=== PATIENT | male | born 1950 | race Caucasian/White ===

== ENCOUNTER 2017-12-21 07:34 | Emergency (ER) | payer OTHER ==
[~2017-12-21] VITALS: Ht 177.8 cm; Wt 93.0 kg
[~2017-12-21 07:34] MED LIST: HYDR-3583 PO
[2017-12-21] MEDS ORDERED: KETOROLAC 30 MG/ML VIAL ONE (08:01)
[2017-12-21] MEDS ORDERED: ONDANSETRON 4 MG/2 ML (SDV) Z0FRAN ONE (08:01)
[2017-12-21] MEDS ORDERED: NS IV 1000 ML 1,000 ML IV ONE (08:12)
[2017-12-21 08:18] LABS: BASOPHILS # (AUTO) 0.1 10^3/uL (0.0-0.1); BASOPHILS % (AUTO) 1 % (0-10); EOSINOPHILS # (AUTO) 0.2 10^3/uL (0.0-0.3); EOSINOPHILS % (AUTO) 3 % (0-10); HEMATOCRIT 42 % (40-54); HEMOGLOBIN 14.1 G/DL (13.3-17.7); LYMPHOCYTES # (AUTO) 1.2 X 10^3 (1.0-4.0); LYMPHOCYTES % (AUTO) 20 % (12-44); MEAN CORPUSCULAR HEMOGLOBIN 29 PG (25-34); MEAN CORPUSCULAR HGB CONC 34 G/DL (32-36); MEAN CORPUSCULAR VOLUME 88 FL (80-99); MEAN PLATELET VOLUME 9.8 FL (7.4-10.4); MONOCYTES # (AUTO) 0.5 X 10^3 (0.0-1.0); MONOCYTES % (AUTO) 8 % (0-12); NEUTROPHILS # (AUTO) 3.9 X 10^3 (1.8-7.8); NEUTROPHILS % (AUTO) 67 % (42-75); PLATELET COUNT 214 10^3/uL (130-400); RED CELL DISTRIBUTION WIDTH 13.5 % (10.0-14.5); WHITE BLOOD COUNT 5.8 10^3/uL (4.3-11.0)
[2017-12-21 08:24] LABS: BILIRUBIN,URINE NEGATIVE (NEGATIVE); CLARITY,URINE CLEAR; COLOR,URINE YELLOW; GLUCOSE, URINE (UA) NEGATIVE (NEGATIVE); KETONES,URINE NEGATIVE (NEGATIVE); LEUKOCYTE ESTERASE ,URINE NEGATIVE (NEGATIVE); NITRITE,URINE NEGATIVE (NEGATIVE); PH,URINE 5 (5-9); PROTEIN,URINE NEGATIVE (NEGATIVE); UROBILINOGEN,URINE NORMAL (NORMAL)
[2017-12-21 08:30] LABS: ALANINE AMINOTRANSFERASE 17 U/L (0-55); ALBUMIN 4.2 GM/DL (3.2-4.5); ALKALINE PHOSPHATASE 62 U/L (40-136); BILIRUBIN,TOTAL 0.6 MG/DL (0.1-1.0); BUN/CREATININE RATIO 19; CALCIUM 9.7 MG/DL (8.5-10.1); CARBON DIOXIDE 25 MMOL/L (21-32); CHLORIDE 105 MMOL/L (98-107); CREATININE SERUM 1.12 MG/DL (0.60-1.30); GFR ESTIMATED > 60; GLUCOSE 116 MG/DL (70-105); SODIUM 139 MMOL/L (135-145); TOTAL PROTEIN 6.9 GM/DL (6.4-8.2)
[2017-12-21 08:32] LABS: BACTERIA,URINE NEGATIVE /HPF; RBC,URINE RARE /HPF
--- NOTE | 2017-12-21 09:26 | Diagnostic Imaging Report ---
PROCEDURE: CT urinary tract, rule out kidney stone. TECHNIQUE: Multiple contiguous axial images were obtained through the abdomen and pelvis without the use of intravenous contrast. INDICATION: Right flank pain and history of kidney stones. COMPARISON: Made with prior CT from 04/23/2012. FINDINGS: The lung bases are clear. Liver and gallbladder are unremarkable. The pancreas and spleen are unremarkable. No adrenal mass is identified. There are numerous nonobstructing calculi within both kidneys. The right kidney also demonstrates moderate hydroureteronephrosis. The dilated right ureter is traced to the bladder where there is a 3 mm calculus located at the UVJ. There is mild perinephric and periureteral inflammatory stranding on the right side. Low-density mass anterior aspect of the right kidney previously seen has increased measuring 2.77 cm compared with 2.2 cm. The aorta is non-aneurysmal. The small and large bowel loops are normal caliber. There is no ascites. IMPRESSION: 1. Bilateral nonobstructing nephrolithiasis. In addition there is a 3 mm calculus at the right UVJ producing moderate hydroureteronephrosis with perinephric and periureteral inflammatory stranding. 2. Increase in size of low density mass in the right kidney suggestive of enlarging cyst. This has increased approximately 5 mm since the exam from 2011. Dictated by: Dictated on workstation # [id number]
--- NOTE | 2017-12-21 09:31 | ED Abdominal Pain ---
General Chief Complaint: Abdominal/GI Problems Stated Complaint: RT ABD PAIN, RT BACK PAIN Nursing Triage Note: PT CO OF ABD PAIN, STATES STARTED AT APPROX 0630 THIS AM, PT IS UNABLE TO SIT STILL D/T PAIN, PT STATES PAIN IS IN R SIDE AND GOES THRU TO BACK, STATES HAS HX OF KIDNEY STONES Sepsis Screen: No Definite Risk Source of Information: Patient Exam Limitations: No Limitations History of Present Illness Date Seen by Provider: Dec 21, 2017 Time Seen by Provider: 07:54 Initial Comments This 67 gentleman presents to the emergency room with complaints of pain in the right lower back radiating around to the right lower abdomen that started while he urinated this morning. He has associated nausea. He denies any hematuria or other urinary changes. He does have a history of renal stones and lithotripsy. He has been afebrile. Allergies and Home Medications Allergies Coded Allergies: No Known Drug Allergies (Unverified , 12/01/10) Home Medications Hydrocodone/Acetaminophen 1 Each Tablet, 1-2 EACH PO Q4H PRN for PAIN-MODERATE TO SEVERE Prescribed by: YARELIS KRUEGER on 12/21/17 1000 Ondansetron 4 Mg Tab.rapdis, 4 MG SL Q4H PRN for NAUSEA/VOMITING-1ST LINE Prescribed by: YARELIS KRUEGER on 12/21/17 1000 Patient Home Medication List Home Medication List Reviewed: Yes Review of Systems Constitutional: no symptoms reported EENTM: No Symptoms Reported Respiratory: No Symptoms Reported Cardiovascular: No Symptoms Reported Gastrointestinal: See HPI Genitourinary: See HPI Musculoskeletal: no symptoms reported Skin: no symptoms reported Psychiatric/Neurological: No Symptoms Reported Endocrine: No Symptoms Reported Hematologic/Lymphatic: No Symptoms Reported Past Rfsjfub-Vzjhmx-Xqvkcg Hx Patient Social History Alcohol Use: Denies Use Recreational Drug Use: No Recent Foreign Travel: No Contact w/Someone Who Travel: No Recent Infectious Disease Expo: No Recent Hopitalizations: No Physical Abuse: No Sexual Abuse: No Past Medical History Surgeries: Yes Abdominal (hernia repair 2), Renal (lithotripsy) Respiratory: No Cardiac: No Neurological: No Reproductive Disorders: No (RIGHT HYDROCELE) Sexually Transmitted Disease: No Genitourinary: Yes Kidney Stones Gastrointestinal: No Musculoskeletal: Yes (KNEE AND JOINT PROBLEMS) Chronic Back Pain Endocrine: No HEENT: No Cancer: No Did You Recieve Any Treatments: No Psychosocial: No Nursing Suicide Risk Score: 0 Blood Disorders: No Physical Exam Vital Signs Vital Signs - First Documented 12/21/17 07:40 Temp 97.6 Pulse 74 Resp 18 B/P (MAP) 163/91 (115) Pulse Ox 98 Capillary Refill : Less Than 3 Seconds General Appearance: WD/WN, no apparent distress HEENT: normal ENT inspection, pharynx normal Neck: normal inspection Respiratory: lungs clear, normal breath sounds, no respiratory distress, no accessory muscle use Cardiovascular: regular rate, rhythm, no edema, no murmur Gastrointestinal: normal bowel sounds, non tender, soft Extremities: normal inspection Back: normal inspection, no CVA tenderness Neurologic/Psychiatric: heel seat filler II-XII nml as tested, no motor/sensory deficits, alert, normal mood/affect, oriented x 3 Skin: normal color, warm/dry Progress/Results/Core Measures Lab Results Laboratory Tests Test 12/21/17 07:59 12/21/17 08:17 Range/Units White Blood Count 5.8 4.3-11.0 10^3/uL Red Blood Count 4.80 4.35-5.85 10^6/uL Hemoglobin 14.1 13.3-17.7 G/DL Hematocrit 42 40-54 % Mean Corpuscular Volume 88 80-99 FL Mean Corpuscular Hemoglobin 29 25-34 PG Mean Corpuscular Hemoglobin Concent 34 32-36 G/DL Red Cell Distribution Width 13.5 10.0-14.5 % Platelet Count 214 130-400 10^3/uL Mean Platelet Volume 9.8 7.4-10.4 FL Neutrophils (%) (Auto) 67 42-75 % Lymphocytes (%) (Auto) 20 12-44 % Monocytes (%) (Auto) 8 0-12 % Eosinophils (%) (Auto) 3 0-10 % Basophils (%) (Auto) 1 0-10 % Neutrophils # (Auto) 3.9 1.8-7.8 X 10^3 Lymphocytes # (Auto) 1.2 1.0-4.0 X 10^3 Monocytes # (Auto) 0.5 0.0-1.0 X 10^3 Eosinophils # (Auto) 0.2 0.0-0.3 10^3/uL Basophils # (Auto) 0.1 0.0-0.1 10^3/uL Sodium Level 139 135-145 MMOL/L Potassium Level 4.0 3.6-5.0 MMOL/L Chloride Level 105 98-107 MMOL/L Carbon Dioxide Level 25 21-32 MMOL/L Anion Gap 9 5-14 MMOL/L Blood Urea Nitrogen 21 H 7-18 MG/DL Creatinine 1.12 0.60-1.30 MG/DL Estimat Glomerular Filtration Rate > 60 BUN/Creatinine Ratio 19 Glucose Level 116 H 70-105 MG/DL Calcium Level 9.7 8.5-10.1 MG/DL Total Bilirubin 0.6 0.1-1.0 MG/DL Aspartate Amino Transf (AST/SGOT) 21 5-34 U/L Alanine Aminotransferase (ALT/SGPT) 17 0-55 U/L Alkaline Phosphatase 62 40-136 U/L Total Protein 6.9 6.4-8.2 GM/DL Albumin 4.2 3.2-4.5 GM/DL Urine Color YELLOW Urine Clarity CLEAR Urine pH 5 5-9 Urine Specific [place] 1.020 1.016-1.022 Urine Protein NEGATIVE NEGATIVE Urine Glucose (UA) NEGATIVE NEGATIVE Urine Ketones NEGATIVE NEGATIVE Urine Nitrite NEGATIVE NEGATIVE Urine Bilirubin NEGATIVE NEGATIVE Urine Urobilinogen NORMAL NORMAL MG/DL Urine Leukocyte Esterase NEGATIVE NEGATIVE Urine RBC (Auto) NEGATIVE NEGATIVE Urine RBC RARE /HPF Urine WBC NONE /HPF Urine Squamous Epithelial Cells 5-10 /HPF Urine Crystals NONE /LPF Urine Bacteria NEGATIVE /HPF Urine Casts NONE /LPF Urine Mucus NEGATIVE /LPF Urine Culture Indicated NO My Orders Orders - YARELIS LUIS MD Ua Culture If Indicated (12/21/17 07:54) Ondansetron Injection (Zofran Injectio (12/21/17 08:01) Ketorolac Injection (Toradol Injection) (12/21/17 08:01) Cbc With Automated Diff (12/21/17 08:12) Comprehensive Metabolic Panel (12/21/17 08:12) Saline Lock/Iv-Start (12/21/17 08:12) Ns Iv 1000 Ml (Sodium Chloride 0.9%) (12/21/17 08:12) Ct Abd/Pelvis Wo(Kidney Stone) (12/21/17 08:45) Abdomen/Kub 1view (12/21/17 09:22) Medications Given in ED Current Medications Medications Dose Ordered Sig/Roel Route Start Time Stop Time Status Last Admin Dose Admin Ketorolac Tromethamine 30 mg STK-MED ONCE .ROUTE 12/21/17 08:01 12/21/17 08:06 DC 12/21/17 08:09 30 MG Ondansetron HCl 4 mg STK-MED ONCE .ROUTE 12/21/17 08:01 12/21/17 08:05 DC 12/21/17 08:08 4 MG Sodium Chloride 1,000 ml @ 0 mls/hr Q0M ONCE IV 12/21/17 08:12 12/21/17 08:13 DC 12/21/17 08:34 1,000 MLS/HR Vital Signs/I&O 12/21/17 12/21/17 07:40 10:12 Temp 97.6 Pulse 74 72 Resp 18 18 B/P (MAP) 163/91 (115) 146/89 Pulse Ox 98 96 Blood Pressure Mean: 115 Progress Note : Progress Note Patient received Toradol and Zofran for initial symptom management as well as a liter of IV fluids. No blood was found in his urine. Risks and benefits of further evaluation with CT scan were discussed. Patient elects to proceed with CT scan. CT demonstrates numerous kidney stones and a right ureteral stone at the right UVJ. Diagonstic Imaging: CT Plain Films/CT/US/NM/MRI: abdomen, pelvis Comments CT abdomen and pelvis viewed by me and report reviewed. See report below: NAME: ESTELITA GOLDSTEIN [facility] REC#: [id number] PT STATUS: REG ER : 1950 PHYSICIAN: YARELIS LUIS MD ADMIT DATE: 12/21/17/ER Draft Date of Exam:12/21/17 CT ABD/PELVIS WO(KIDNEY STONE) PROCEDURE: CT urinary tract, rule out kidney stone. TECHNIQUE: Multiple contiguous axial images were obtained through the abdomen and pelvis without the use of intravenous contrast. INDICATION: Right flank pain and history of kidney stones. COMPARISON: Made with prior CT from 04/23/2012. FINDINGS: The lung bases are clear. Liver and gallbladder are unremarkable. The pancreas and spleen are unremarkable. No adrenal mass is identified. There are numerous nonobstructing calculi within both kidneys. The right kidney also demonstrates moderate hydroureteronephrosis. The dilated right ureter is traced to the bladder where there is a 3 mm calculus located at the UVJ. There is mild perinephric and periureteral inflammatory stranding on the right side. Low-density mass anterior aspect of the right kidney previously seen has increased measuring 2.77 cm compared with 2.2 cm. The aorta is non-aneurysmal. The small and large bowel loops are normal caliber. There is no ascites. IMPRESSION: 1. Bilateral nonobstructing nephrolithiasis. In addition there is a 3 mm calculus at the right UVJ producing moderate hydroureteronephrosis with perinephric and periureteral inflammatory stranding. 2. Increase in size of low density mass in the right kidney suggestive of enlarging cyst. This has increased approximately 5 mm since the exam from 2011. Dictated on workstation # [id number] Dict: 12/21/17916 Trans: 12/21/17925 CVB [id number] Interpreted by: THUAN WHITEHEAD MD Departure Impression Primary Impression: Right ureteral stone Additional Impressions: Hydronephrosis Qualified Codes: N13.2 - Hydronephrosis with renal and ureteral calculous obstruction Bilateral nephrolithiasis Renal cyst, right Disposition: 01 HOME, SELF-CARE Condition: Improved Departure-Patient Inst. Decision time for Depature: 09:30 Referrals: NO,LOCAL PHYSICIAN (PCP) Primary Care Physician RODDY JOE MD Patient Instructions: Kidney Stones in Adults Add. Discharge Instructions: Drink plenty of clear liquids. Strain your urine and bring any stones collected with you to your appointment. Use Zofran as prescribed for nausea and vomiting. Usual pain medication as directed. Follow-up with a urologist as soon as possible. Return to emergency room if you have worsening symptoms. All discharge instructions reviewed with patient and/or family. Voiced understanding. Scripts Hydrocodone/Acetaminophen (Hydrocodone-Acetamin 5-325 mg) 1 Each Tablet 1-2 EACH PO Q4H PRN for PAIN-MODERATE TO SEVERE, #20 TAB Prov: YARELIS LUIS MD 12/21/17 Ondansetron (Zofran Odt) 4 Mg Tab.rapdis 4 MG SL Q4H PRN for NAUSEA/VOMITING-1ST LINE, #10 TAB 2 Refills Prov: YARELIS LUIS MD 4/27/18 Copy Copies To 1: RODDY JOE MD, JOSHUA T MD Dec 21, 2017 09:31
[2017-12-21] MEDS ORDERED: HYDR-3812 PO (10:00)
[2017-12-21] MEDS ORDERED: ONDA4TAB8 SL (10:00)
--- NOTE | 2017-12-21 10:05 | Diagnostic Imaging Report ---
EXAMINATION: Abdomen 1032 hours. INDICATION: Abdominal pain. 2 supine views were obtained. FINDINGS: As noted on the CT abdomen/pelvis exam performed prior to the study, there are nonobstructive calculi within both kidneys. The small 2-3 MM obstructive calculus within the ureterovesical junction of the right seen on the CT exam is difficult to appreciate on this study. There is no mass or organomegaly appreciated. The bowel gas pattern is nonspecific. There is levoscoliosis of the lumbar spine and severe degenerative disc and bony disease at the L2-L3 and L3-L4 levels. There is no acute bony abnormality noted. The surgical coils are evident overlying the right low pelvis consistent with prior hernia repair. IMPRESSION: 1. There are nonobstructive calculi within both kidneys. The obstructive calculus at the ureterovesical junction of the right seen on CT exam is difficult to appreciate on this study, however. 2. There is no acute abnormality noted otherwise. Dictated by: Dictated on workstation # [id number]
[2017-12-21 10:12] VITALS: BP 146/89
== END 2017-12-21 10:12 | disposition home or self-care (01) ==
LOC: EDUNIT# 07:34 → ER 07:36
DX: N13.2 Hydronephrosis with renal and ureteral calculous obstruction (principal); N28.1 Cyst of kidney, acquired; Z87.19 Personal history of other diseases of the digestive system
CPT/HCPCS: 36415; 74018; 74176; 80053; 81000; 85025; 96374; 96375

== ENCOUNTER → 2018-03-08 | Outpatient (CLI) | payer OTHER ==
[~2018-03-08] MED LIST changes: +HYDR-3812 PO; +ONDA4TAB8 SL
--- NOTE | 2018-03-08 16:01 | Diagnostic Imaging Report ---
Indication: Scoliosis and right leg pain. Time of exam: 4:06 PM Left convexity upper lumbar scoliotic curvature appears similar to prior exam. No significant scoliotic curvature is seen. Lumbar scoliotic curvature is approximately 31 degrees. Thoracic vertebra not well visualized on the submitted images. Lungs appear to be clear. Paraspinous line is intact. Impression: Left convexity lumbar scoliotic curvature. Overall image quality is somewhat limited. Dictated by: Dictated on workstation # [id number]
--- NOTE | 2018-03-08 16:31 | Diagnostic Imaging Report ---
EXAM: LUMBAR SPINE - 2-3 VIEWS INDICATION: SCIATIAC RT LEG/ SCOLIOSIS COMPARISON: CT abdomen and pelvis without contrast 12/21/2017. FINDINGS: Moderate to advanced left apex lumbar curvature centered at L2-L3. There are moderate to advanced degenerative endplate changes throughout the lumbar spine. Grade 2 anterolisthesis of L5 on S1 is stable. Vertebral body heights are preserved. No acute fractures. Advanced facet arthropathy throughout the lumbar spine. Nonspecific bowel gas pattern in the visualized abdomen. Moderate degenerative changes in the sacroiliac joints. Surgical clips overlying the pelvis. IMPRESSION: Advanced spondylotic and scoliotic changes in the lumbar spine including grade 2 anterolisthesis of L5 on S1. These findings are stable compared to the 12/21/2017 CT. No acute radiographic findings. Dictated by: Dictated on workstation # [id number]
== END ==
LOC: RAD 14:59
PROVIDERS: ATTEND Chiropractor Sports Physician
DX: M41.86 Other forms of scoliosis, lumbar region (principal); M43.17 Spondylolisthesis, lumbosacral region
CPT/HCPCS: 72081; 72100

== ENCOUNTER → 2021-09-13 | Outpatient (CLI) | payer OTHER ==
[~2021-09-13] MED LIST changes: +ACHD5005 PO; -HYDR-3812 PO
--- NOTE | 2021-09-13 11:00 | Diagnostic Imaging Report ---
Lumbar spine at 946h. INDICATION: Postsurgical. AP and lateral views were obtained. The prior lumbar spine exam of 03/08/18 noted advanced spondylitic and scoliotic changes involving the lumbar spine including a grade 2 anterolisthesis of L5 with respect S1. In the interval since the prior exam the patient has undergone surgical fusion. There are now bilateral pedicle screws in place at L4-L5 and S1. There is also an interbody device at the L4-L5 level. The orthopedic hardware seems to be in good position. The grade 2 spondylolisthesis of L5 with respect S1 seen previously is again evident and no different. The remainder of the lumbar spine is unchanged. There is no acute abnormality identified. There is no sign of a paraspinal mass. IMPRESSION: 1. There are postsurgical changes consistent with interval fusion of L4-L5 and S1. The orthopedic hardware seems to be in good position. 2. There is no acute abnormality identified. 3. There is still a grade 2 spondylolisthesis of L5 with respect to S1. Dictated by: Dictated on workstation # [id number]
== END ==
LOC: RAD 09:11
PROVIDERS: ATTEND Neurological Surgery
DX: Z48.89 Encounter for other specified surgical aftercare (principal); M43.17 Spondylolisthesis, lumbosacral region; Z98.1 Arthrodesis status
CPT/HCPCS: 72100

== ENCOUNTER → 2021-09-27 | Outpatient (CLI) | payer OTHER ==
--- NOTE | 2021-09-27 09:32 | Diagnostic Imaging Report ---
INDICATION: Hip pain COMPARISON: None. FINDINGS: 2 views the right hip demonstrate mild degenerative joint disease. There is no fracture or dislocation. No osseous lesion. IMPRESSION: Degenerative joint disease. Dictated by: Dictated on workstation # [id number]
== END ==
LOC: RAD 08:53
PROVIDERS: ATTEND Physical Medicine & Rehabilitation
DX: M16.11 Unilateral primary osteoarthritis, right hip (principal)
CPT/HCPCS: 73502

== ENCOUNTER → 2021-12-27 | Outpatient (CLI) | payer OTHER ==
[2021-12-27 08:44] LABS: BASOPHILS # (AUTO) 0.1 10^3/uL (0.0-0.1); BASOPHILS % (AUTO) 1 % (0-10); EOSINOPHILS # (AUTO) 0.1 10^3/uL (0.0-0.3); EOSINOPHILS % (AUTO) 2 % (0-10); HEMATOCRIT 43 % (40-54); LYMPHOCYTES # (AUTO) 1.6 10^3/uL (1.0-4.0); LYMPHOCYTES % (AUTO) 31 % (12-44); MEAN CORPUSCULAR HEMOGLOBIN 30 pg (25-34); MEAN CORPUSCULAR HGB CONC 33 g/dL (32-36); MEAN CORPUSCULAR VOLUME 90 fL (80-99); MEAN PLATELET VOLUME 9.5 fL (9.0-12.2); MONOCYTES # (AUTO) 0.5 10^3/uL (0.0-1.0); MONOCYTES % (AUTO) 10 % (0-12); NEUTROPHILS # (AUTO) 2.8 10^3/uL (1.8-7.8); NEUTROPHILS % (AUTO) 55 % (42-75); PLATELET COUNT 215 10^3/uL (130-400)
[2021-12-27 09:20] LABS: BILIRUBIN,TOTAL 0.4 MG/DL (0.1-1.0); CALCIUM 9.3 MG/DL (8.5-10.1); CREATININE SERUM 1.23 MG/DL (0.60-1.30); POTASSIUM 4.3 MMOL/L (3.6-5.0)
== END ==
LOC: LAB 08:21
DX: N40.0 Benign prostatic hyperplasia without lower urinary tract symptoms (principal); R53.83 Other fatigue; E78.2 Mixed hyperlipidemia
CPT/HCPCS: 36415; 80053; 80061; 84153; 84443; 85025

== ENCOUNTER → 2023-03-28 | Outpatient (CLI) | payer OTHER ==
[2023-03-28 15:30] LABS: BASOPHILS % (AUTO) 1 % (0-10); EOSINOPHILS # (AUTO) 0.1 10^3/uL (0.0-0.3); EOSINOPHILS % (AUTO) 2 % (0-10); HEMATOCRIT 42 % (40-54); HEMOGLOBIN 13.6 g/dL (13.3-17.7); LYMPHOCYTES # (AUTO) 1.5 X 10^3 (1.0-4.0); LYMPHOCYTES % (AUTO) 32 % (12-44); MEAN CORPUSCULAR HEMOGLOBIN 30 pg (25-34); MEAN CORPUSCULAR HGB CONC 33 g/dL (32-36); MEAN CORPUSCULAR VOLUME 91 fL (80-99); MEAN PLATELET VOLUME 9.2 fL (9.0-12.2); MONOCYTES # (AUTO) 0.4 X 10^3 (0.0-1.0); MONOCYTES % (AUTO) 9 % (0-12); NEUTROPHILS # (AUTO) 2.5 X 10^3 (1.8-7.8); NEUTROPHILS % (AUTO) 56 % (42-75); PLATELET COUNT 214 10^3/uL (130-400); WHITE BLOOD COUNT 4.5 10^3/uL (4.3-11.0)
[2023-03-28 15:43] LABS: ALBUMIN 4.1 GM/DL (3.2-4.5); POTASSIUM 4.3 MMOL/L (3.6-5.0)
[2023-03-28 15:44] LABS: CALCIUM 9.4 MG/DL (8.5-10.1)
[2023-03-28 15:46] LABS: TOTAL PROTEIN 7.2 GM/DL (6.4-8.2)
[2023-03-28 15:47] LABS: BILIRUBIN,TOTAL 0.4 MG/DL (0.1-1.0)
[2023-03-28 15:49] LABS: CREATININE SERUM 1.15 MG/DL (0.60-1.30)
== END | disposition home or self-care (01) ==
LOC: LAB 15:09
PROVIDERS: ATTEND Family Medicine
DX: Z00.00 Encounter for general adult medical examination without abnormal findings (principal)
CPT/HCPCS: 36415; 80053; 80061; 85025

== ENCOUNTER 2023-06-01 13:25 | Emergency (ER) | payer OTHER ==
[2023-06-01 13:51] VITALS: BP 121/58
[2023-06-01 14:22] LABS: BASOPHILS % (AUTO) 0 % (0-10); EOSINOPHILS % (AUTO) 0 % (0-10); HEMATOCRIT 41 % (40-54); HEMOGLOBIN 13.2 g/dL (13.3-17.7); LYMPHOCYTES # (AUTO) 0.3 X 10^3 (1.0-4.0); LYMPHOCYTES % (AUTO) 2 % (12-44); MEAN CORPUSCULAR HEMOGLOBIN 30 pg (25-34); MEAN CORPUSCULAR HGB CONC 32 g/dL (32-36); MEAN CORPUSCULAR VOLUME 92 fL (80-99); MEAN PLATELET VOLUME 9.9 fL (9.0-12.2); MONOCYTES % (AUTO) 8 % (0-12); NEUTROPHILS # (AUTO) 11.7 X 10^3 (1.8-7.8); NEUTROPHILS % (AUTO) 89 % (42-75); PLATELET COUNT 182 10^3/uL (130-400); WHITE BLOOD COUNT 13.2 10^3/uL (4.3-11.0)
[2023-06-01 14:38] LABS: ALBUMIN 3.9 GM/DL (3.2-4.5); POTASSIUM 3.7 MMOL/L (3.6-5.0)
[2023-06-01 14:39] LABS: CALCIUM 9.5 MG/DL (8.5-10.1)
[2023-06-01 14:42] LABS: BILIRUBIN,TOTAL 1.2 MG/DL (0.1-1.0)
[2023-06-01 14:44] LABS: CREATININE SERUM 1.31 MG/DL (0.60-1.30)
--- NOTE | 2023-06-01 14:52 | ED Abdominal Pain ---
General Chief Complaint: Abdominal/GI Problems Stated Complaint: ABD PAIN Nursing Triage Note: PATIENT COMPLAINT OF ABDOMINAL PAIN WITH STANDING ONLY. STATES DIFF URINATING. Source of Information: Patient Exam Limitations: No Limitations History of Present Illness Date Seen by Provider: Jun 01, 2023 Time Seen by Provider: 14:24 Initial Comments 73-year-old male presents emergency room today for abdominal discomfort. He states it is in his suprapubic region, lower abdomen and was present when he woke up. It has been progressive through the day. It really only hurts when he is upright and does not hurt at all when he sits down. He does endorse some decreased frequency of bowel movements over the last couple of days but he is still having small bowel movements daily. He denies any nausea or vomiting. No fevers or chills. No dysuria or hematuria. He does have a history of kidney stones and believes it might be related to that. He has had no intra-abdominal surgeries. All other systems reviewed and negative except documented per HPI. Voice recognition software was used to help create this chart Allergies and Home Medications Allergies Coded Allergies: No Known Drug Allergies (Unverified , 12/01/10) Patient Home Medication List Home Medication List Reviewed: Yes Hydrocodone Bit/Acetaminophen (Lortab 5 Mg Tablet) 1 Each Tablet, 1-2 EACH PO Q4H PRN for PAIN-MODERATE TO SEVERE Prescribed by: YARELIS KRUEGER on 12/21/17 1000 Ondansetron (Zofran Odt) 4 Mg Tab.rapdis, 4 MG SL Q4H PRN for NAUSEA/VOMITING- 1ST LINE Prescribed by: YARELIS KRUEGER on 12/21/17 1000 Review of Systems Review of Systems Constitutional: see HPI Past Gxfnada-Sjkoyj-Gxeppx Hx Patient Social History Tobacco Use?: No Use of E-Cig and/or Vaping dev: No Alcohol Use?: No Past Medical History Surgeries: Yes Abdominal, Renal Respiratory: No Cardiac: No Neurological: No Reproductive Disorders: No (RIGHT HYDROCELE) Sexually Transmitted Disease: No Genitourinary: Yes Kidney Stones Gastrointestinal: No Musculoskeletal: Yes (KNEE AND JOINT PROBLEMS) Chronic Back Pain Endocrine: No HEENT: No Cancer: No Did You Recieve Any Treatments: No Psychosocial: No Blood Disorders: No Physical Exam Vital Signs Vital Signs - First Documented 06/01/23 13:51 Pulse 87 Resp 20 B/P (MAP) 121/58 (79) Pulse Ox 96 O2 Delivery Room Air Capillary Refill : Less Than 3 Seconds Height/Weight/BMI Height: 5'10.00" Weight: 205lbs. oz. 92.655505yq; BMI Method:Stated General Appearance: WD/WN, no apparent distress HEENT: normal ENT inspection, pharynx normal Respiratory: chest non-tender, lungs clear, normal breath sounds, no respiratory distress, no accessory muscle use Cardiovascular: regular rate, rhythm, no murmur Gastrointestinal: normal bowel sounds, soft, tenderness (Tenderness palpation bilateral suprapubic region and lower abdomen just inferior to the umbilicus. No rebound or guarding. No mass organomegaly. No skin changes.) Extremities: normal range of motion, normal capillary refill Skin: normal color, warm/dry Progress/Results/Core Measures Results/Orders Lab Results Laboratory Tests Test 06/01/23 14:14 06/01/23 15:09 Range/Units White Blood Count 13.2 H 4.3-11.0 10^3/uL Red Blood Count 4.43 4.30-5.52 10^6/uL Hemoglobin 13.2 L 13.3-17.7 g/dL Hematocrit 41 40-54 % Mean Corpuscular Volume 92 80-99 fL Mean Corpuscular Hemoglobin 30 25-34 pg Mean Corpuscular Hemoglobin Concent 32 32-36 g/dL Red Cell Distribution Width 13.6 10.0-14.5 % Platelet Count 182 130-400 10^3/uL Mean Platelet Volume 9.9 9.0-12.2 fL Immature Granulocyte % (Auto) 1 % Neutrophils (%) (Auto) 89 H 42-75 % Lymphocytes (%) (Auto) 2 L 12-44 % Monocytes (%) (Auto) 8 0-12 % Eosinophils (%) (Auto) 0 0-10 % Basophils (%) (Auto) 0 0-10 % Neutrophils # (Auto) 11.7 H 1.8-7.8 X 10^3 Lymphocytes # (Auto) 0.3 L 1.0-4.0 X 10^3 Monocytes # (Auto) 1.0 0.0-1.0 X 10^3 Eosinophils # (Auto) 0.0 0.0-0.3 10^3/uL Basophils # (Auto) 0.0 0.0-0.1 10^3/uL Immature Granulocyte # (Auto) 0.1 0.0-0.1 10^3/uL Neutrophils % (Manual) 92 % Lymphocytes % (Manual) 2 % Monocytes % (Manual) 2 % Band Neutrophils 4 % Platelet Estimate ADEQUATE Poikilocytosis SLIGHT Sodium Level 136 135-145 MMOL/L Potassium Level 3.7 3.6-5.0 MMOL/L Chloride Level 102 98-107 MMOL/L Carbon Dioxide Level 22 21-32 MMOL/L Anion Gap 12 5-14 MMOL/L Blood Urea Nitrogen 19 H 7-18 MG/DL Creatinine 1.31 H 0.60-1.30 MG/DL Estimat Glomerular Filtration Rate 58 BUN/Creatinine Ratio 15 Glucose Level 150 H 70-105 MG/DL Calcium Level 9.5 8.5-10.1 MG/DL Corrected Calcium 9.6 8.5-10.1 MG/DL Total Bilirubin 1.2 H 0.1-1.0 MG/DL Aspartate Amino Transf (AST/SGOT) 15 5-34 U/L Alanine Aminotransferase (ALT/SGPT) 11 0-55 U/L Alkaline Phosphatase 77 40-136 U/L Total Protein 7.0 6.4-8.2 GM/DL Albumin 3.9 3.2-4.5 GM/DL Urine Color ORANGE Urine Clarity CLOUDY Urine pH 5.5 5-9 Urine Specific [place] 1.020 1.016-1.022 Urine Protein 3+ H NEGATIVE Urine Glucose (UA) NEGATIVE NEGATIVE Urine Ketones NEGATIVE NEGATIVE Urine Nitrite POSITIVE H NEGATIVE Urine Bilirubin NEGATIVE NEGATIVE Urine Urobilinogen 0.2 < = 1.0 MG/DL Urine Leukocyte Esterase 1+ H NEGATIVE Urine RBC (Auto) 3+ H NEGATIVE Urine RBC 10-25 H /HPF Urine WBC 25-50 H /HPF Urine Squamous Epithelial Cells 2-5 /HPF Urine Crystals NONE /LPF Urine Bacteria LARGE H /HPF Urine Casts NONE /LPF Urine Mucus NEGATIVE /LPF Urine Culture Indicated YES My Orders Orders - DEEPA STUBBS DO Comprehensive Metabolic Panel (06/01/23 13:57) Ua Culture If Indicated (06/01/23 13:57) Ct Abdomen/Pelvis W (06/01/23 13:57) Cbc And Automated Diff (06/01/23 13:57) Ed Iv/Invasive Line Start (06/01/23 13:57) Manual Differential (06/01/23 14:14) Iohexol Injection (Omnipaque 350 Mg/Ml 1 (06/01/23 15:00) Received Contrast (Hold Metformin- Contr (06/01/23 15:00) Ns (Ivpb) 100 Ml (Sodium Chloride 0.9% 1 (06/01/23 15:00) Urine Culture (06/01/23 15:09) Ciprofloxacin Tablet (Ciprofloxacin Tabl (06/01/23 15:39) Medications Given in ED Current Medications Medications Dose Ordered Sig/Roel Route Start Time Stop Time Status Last Admin Dose Admin Iohexol 100 ml ONCE ONCE IV 06/01/23 15:00 06/01/23 15:01 DC 06/01/23 15:12 80 ML Sodium Chloride 100 ml ONCE ONCE IV 06/01/23 15:00 06/01/23 15:01 DC 06/01/23 15:12 80 ML Vital Signs/I&O 06/01/23 13:51 Pulse 87 Resp 20 B/P (MAP) 121/58 (79) Pulse Ox 96 O2 Delivery Room Air Blood Pressure Mean: 79 Departure Communication (Admissions) Patient is hemodynamically stable and nonsurgical abdominal exam. CT scan shows possible recently passed stone with the stone in the bladder and diffuse bladder wall thickening. Urinalysis and CT findings are consistent with acute urinary tract infection. He has some intrarenal stones but no stones in the ureters currently. His pain is minimal since arrival. He is afebrile and nontoxic. I have independently reviewed his CT scan images he is given p.o. ciprofloxacin here and discharged with the same. Impression Primary Impression: Urinary tract infection Qualified Codes: N30.00 - Acute cystitis without hematuria Disposition: HOME, SELF-CARE Condition: Stable Departure-Patient Inst. Referrals: CRIS RODRÍGUEZ MD (PCP/Family) Primary Care Physician Patient Instructions: Urinary Tract Infection, Adult (DC) Add. Discharge Instructions: Take the antibiotics as prescribed until they are gone. Increase your fluids at home and rest. Use ibuprofen and Tylenol for pain. Return to the emergency department for any severe concerns. All discharge instructions reviewed with patient and/or family. Voiced understanding. Scripts Ciprofloxacin HCl (Ciprofloxacin HCl) 500 Mg Tablet 500 MG PO BID for 7 Days, #14 TAB Prov: DEEPA STUBBS DO 06/01/23 DEEPA STUBBS DO Jun 01, 2023 14:52
[2023-06-01 14:56] LABS: BAND NEUTROPHILS 4 %; LYMPHOCYTES % (MANUAL) 2 %; MONOCYTES % (MANUAL) 2 %; NEUTROPHILS % (MANUAL) 92 %; PLATELET ESTIMATE ADEQUATE; POIKILOCYTOSIS SLIGHT
[2023-06-01] MEDS ORDERED: HOLD METFORMIN - RECEIVED CONTRAST 20 ML VIAL IV SCH (15:00)
[2023-06-01] MEDS ORDERED: IOHEXOL 350 MG/ML 100 ML (OMNIPAQUE 350) VIAL IV ONE (15:00)
[2023-06-01] MEDS ORDERED: NS 100 ML (IVPB) BAG IV ONE (15:00)
--- NOTE | 2023-06-01 15:21 | Diagnostic Imaging Report ---
EXAMINATION: CT abdomen and pelvis with intravenous contrast. TECHNIQUE: Multiple contiguous axial images were obtained through the abdomen and pelvis after the uneventful administration of intravenous contrast. All CT scans use one or more of the following dose optimizing techniques: Automated exposure control, MA and/or KvP adjustment based on patient size and exam type or iterative reconstruction. HISTORY: Lower abdominal pain. COMPARISON: 12/21/2017. FINDINGS: Lung bases: The lung bases are clear. Solid organs: The liver is normal without focal lesion. The gallbladder is normal. There is no biliary ductal dilation. Pancreas is normal. Spleen is normal. Adrenal glands are normal. Multiple bilateral renal cysts are present. There are nonobstructing bilateral renal calculi present measuring up to 0.5 cm. No visualized obstructing renal calculus or hydronephrosis. Bowel: The stomach and small bowel are normal without obstruction. There is scattered colonic diverticulosis. There are no secondary signs of acute appendicitis. Peritoneum: There is no intraperitoneal free fluid or free air. No suspicious lymphadenopathy. Vasculature: Calcification of the aorta without aneurysm. Musculoskeletal: Surgical and degenerative changes of the spine with levocurvature. No suspicious osseous lesion or compression fracture. Surgical changes of the right lower anterior abdominal wall. Pelvis: The prostate gland is normal. There is mild diffuse bladder wall thickening. There is a stone within the dependent urinary bladder measuring 0.4 cm. IMPRESSION: 1. No acute abnormality in the abdomen or pelvis. 2. Bilateral nonobstructing renal calculi measuring up to 0.5 cm without hydronephrosis. 3. A 0.4 cm stone within the urinary bladder, which could represent a primary bladder stone versus a recently passed renal stone. 4. Diffuse bladder wall thickening. Recommend correlation with urinalysis. Dictated by: Dictated on workstation # [id number]
[2023-06-01 15:26] LABS: BACTERIA,URINE LARGE /HPF; BILIRUBIN,URINE NEGATIVE (NEGATIVE); CLARITY,URINE CLOUDY; COLOR,URINE ORANGE; GLUCOSE, URINE (UA) NEGATIVE (NEGATIVE); KETONES,URINE NEGATIVE (NEGATIVE); LEUKOCYTE ESTERASE ,URINE 1+ (NEGATIVE); NITRITE,URINE POSITIVE (NEGATIVE); PH,URINE 5.5 (5-9); PROTEIN,URINE 3+ (NEGATIVE); WBC,URINE 25-50 /HPF
[2023-06-01] MEDS ORDERED: CIPROFLOXACIN 500 MG TABLET PO STA (15:39)
[2023-06-01] MEDS ORDERED: CIPR500T5 PO (15:43)
== END 2023-06-01 15:53 | disposition home or self-care (01) ==
LOC: EDUNIT# 13:25 → ER 13:27
DX: N39.0 Urinary tract infection, site not specified (principal); Z87.442 Personal history of urinary calculi
CPT/HCPCS: 36415; 74177; 80053; 81000; 85007; 85027; 87077; 87088; 87186